=== PATIENT | female | born 1970 ===

== ENCOUNTER 2018-02-16 12:47 | Outpatient (CLI) | payer OTHER | END 2018-02-16 12:48 | disposition home or self-care (01) | LOC: BICMAMMO 12:47 | PROVIDERS: ATTEND Obstetrics & Gynecology | DX: Z12.31 Encounter for screening mammogram for malignant neoplasm of breast (principal); Z80.3 Family history of malignant neoplasm of breast | CPT/HCPCS: 77063; 77067 ==